=== PATIENT | female | born 1980 | race Two or more races ===

== ENCOUNTER 2019-07-24 16:32 | Emergency (ER) | payer OTHER | END 2019-07-24 16:47 | disposition left against medical advice (07) | LOC: ER 16:32 | DX: N39.0 Urinary tract infection, site not specified (principal); R53.1 Weakness; R11.2 Nausea with vomiting, unspecified; J45.909 Unspecified asthma, uncomplicated; F17.210 Nicotine dependence, cigarettes, uncomplicated; R51 Headache; Z98.51 Tubal ligation status ==